=== PATIENT | male | born 1995 | race Two or more races ===

== ENCOUNTER 2023-03-16 15:48 | Emergency (ER) | payer OTHER ==
[~2023-03-16] VITALS: Ht 172.7 cm; Wt 73.9 kg
[2023-03-16 16:16] VITALS: BP 115/70; TEMP 100.5; O2SAT 99
[2023-03-16] MEDS ORDERED: PENI500T PO (16:32)
[2023-03-16] MEDS: ACETAMINOPHEN ES 500 MG TABLET PO ONE (16:41)
== END 2023-03-16 16:41 | disposition home or self-care (01) ==
LOC: ER 15:51
DX: J02.0 Streptococcal pharyngitis (principal); F17.200 Nicotine dependence, unspecified, uncomplicated